=== PATIENT | female | born 1965 | race Two or more races ===

== ENCOUNTER 2024-08-03 23:01 | Emergency (ER) | payer MEDICAID, OTHER ==
[~2024-08-03] VITALS: Ht 165.1 cm; Wt 104.5 kg
[2024-08-03 23:20] VITALS: BP 119/79; PULSE 83; RESP 20; O2SAT 92
== END 2024-08-03 23:25 | disposition left against medical advice (07) ==
LOC: EDBD 23:01 → ER 23:01
DX: M25.562 Pain in left knee (principal); M25.561 Pain in right knee; J45.909 Unspecified asthma, uncomplicated; F41.9 Anxiety disorder, unspecified; Z53.21 Procedure and treatment not carried out due to patient leaving prior to being seen by health care provider; W01.0XXA Fall on same level from slipping, tripping and stumbling without subsequent striking against object, initial encounter; Y93.89 Activity, other specified; Y92.89 Other specified places as the place of occurrence of the external cause; Y99.8 Other external cause status